=== PATIENT | female | born 1940 | race Caucasian/White ===

== ENCOUNTER 2017-10-08 09:31 | Outpatient (RCR) | payer MEDICARE, OTHER | END 2017-10-08 10:13 | disposition home or self-care (01) | PROVIDERS: ATTEND Orthopaedic Surgery | DX: M25.511 Pain in right shoulder (principal) ==

== ENCOUNTER 2018-04-29 17:41 | Outpatient (RCR) | payer MEDICARE, OTHER | END 2018-05-01 | disposition home or self-care (01) | LOC: CR3 17:41 | PROVIDERS: ATTEND Family Medicine | DX: Z29.8 Encounter for other specified prophylactic measures (principal) ==

== ENCOUNTER → 2018-06-01 | Outpatient (RCR) | payer MEDICARE, OTHER | END | disposition home or self-care (01) | LOC: CR3 05-02 15:00 | PROVIDERS: ATTEND Family Medicine | DX: Z29.8 Encounter for other specified prophylactic measures (principal) ==

== ENCOUNTER 2018-06-03 15:00 | Outpatient (RCR) | payer MEDICARE, OTHER | END 2018-07-03 | disposition home or self-care (01) | LOC: CR3 15:00 | PROVIDERS: ATTEND Family Medicine | DX: Z29.8 Encounter for other specified prophylactic measures (principal) ==

== ENCOUNTER 2018-12-16 15:33 | Outpatient (RCR) | payer MEDICARE, OTHER | END 2018-12-18 | disposition home or self-care (01) | LOC: CR3 15:33 | PROVIDERS: ATTEND Family Medicine | DX: Z29.8 Encounter for other specified prophylactic measures (principal) ==

== ENCOUNTER 2019-01-11 15:23 | Outpatient (RCR) | payer MEDICARE, OTHER | END 2019-01-22 | disposition home or self-care (01) | LOC: CR3 15:23 | PROVIDERS: ATTEND Family Medicine | DX: Z29.8 Encounter for other specified prophylactic measures (principal) ==

== ENCOUNTER → 2019-03-01 | Outpatient (RCR) | payer MEDICARE, OTHER | END | disposition home or self-care (01) | LOC: CR3 01-30 16:21 | PROVIDERS: ATTEND Family Medicine | DX: Z29.8 Encounter for other specified prophylactic measures (principal) ==

== ENCOUNTER → 2019-05-10 | Outpatient (RCR) | payer MEDICARE, OTHER | END | disposition home or self-care (01) | LOC: CR3 04-10 16:13 | PROVIDERS: ATTEND Family Medicine | DX: Z29.8 Encounter for other specified prophylactic measures (principal) ==

== ENCOUNTER 2019-05-17 15:27 | Outpatient (RCR) | payer MEDICARE, OTHER | END 2019-06-16 | disposition home or self-care (01) | LOC: CR3 15:27 | PROVIDERS: ATTEND Family Medicine | DX: Z29.8 Encounter for other specified prophylactic measures (principal) ==

== ENCOUNTER 2019-08-07 16:02 | Outpatient (RCR) | payer MEDICARE, OTHER | END 2019-08-09 | disposition home or self-care (01) | LOC: CR3 16:02 | PROVIDERS: ATTEND Family Medicine | DX: Z29.8 Encounter for other specified prophylactic measures (principal) ==

== ENCOUNTER 2019-09-11 15:07 | Outpatient (RCR) | payer MEDICARE, OTHER | END 2019-09-13 | disposition home or self-care (01) | LOC: CR3 15:07 | PROVIDERS: ATTEND Family Medicine | DX: Z29.8 Encounter for other specified prophylactic measures (principal) ==

== ENCOUNTER 2019-10-13 17:53 | Outpatient (RCR) | payer MEDICARE, OTHER | END 2019-10-18 | disposition home or self-care (01) | LOC: CR3 17:53 | PROVIDERS: ATTEND Family Medicine | DX: Z29.8 Encounter for other specified prophylactic measures (principal) ==

== ENCOUNTER 2019-11-20 15:21 | Outpatient (RCR) | payer MEDICARE, OTHER | END 2019-11-22 | disposition home or self-care (01) | LOC: CR3 15:21 | PROVIDERS: ATTEND Family Medicine | DX: Z29.8 Encounter for other specified prophylactic measures (principal) ==

== ENCOUNTER 2019-12-22 15:17 | Outpatient (RCR) | payer MEDICARE, OTHER | END 2019-12-24 | disposition home or self-care (01) | LOC: CR3 15:17 | PROVIDERS: ATTEND Family Medicine | DX: Z29.8 Encounter for other specified prophylactic measures (principal) ==

== ENCOUNTER 2019-12-29 15:47 | Outpatient (RCR) | payer MEDICARE, OTHER | END 2020-01-24 | disposition home or self-care (01) | LOC: CR3 15:47 | PROVIDERS: ATTEND Family Medicine | DX: Z29.8 Encounter for other specified prophylactic measures (principal) ==

== ENCOUNTER → 2021-01-29 | Outpatient (RCR) | payer MEDICARE, OTHER | END | disposition home or self-care (01) | LOC: CR3 12-30 14:15 | PROVIDERS: ATTEND Family Medicine | DX: Z29.8 Encounter for other specified prophylactic measures (principal) ==

== ENCOUNTER 2021-02-26 14:09 | Outpatient (RCR) | payer MEDICARE, OTHER | END 2021-03-02 | disposition home or self-care (01) | LOC: CR3 14:09 | PROVIDERS: ATTEND Family Medicine | DX: Z29.8 Encounter for other specified prophylactic measures (principal) ==

== ENCOUNTER 2021-03-31 14:17 | Outpatient (RCR) | payer MEDICARE, OTHER | END 2021-04-02 | disposition home or self-care (01) | LOC: CR3 14:17 | PROVIDERS: ATTEND Family Medicine | DX: Z29.8 Encounter for other specified prophylactic measures (principal) ==

== ENCOUNTER 2021-05-02 14:12 | Outpatient (RCR) | payer MEDICARE, OTHER | END 2021-05-04 | disposition home or self-care (01) | LOC: CR3 14:12 | PROVIDERS: ATTEND Family Medicine | DX: Z29.8 Encounter for other specified prophylactic measures (principal) ==

== ENCOUNTER → 2021-06-04 | Outpatient (RCR) | payer MEDICARE, OTHER | END | disposition home or self-care (01) | LOC: CR3 05-05 11:42 | PROVIDERS: ATTEND Family Medicine | DX: Z29.8 Encounter for other specified prophylactic measures (principal) ==

== ENCOUNTER 2021-07-07 14:54 | Outpatient (RCR) | payer MEDICARE, OTHER | END 2021-07-09 | disposition home or self-care (01) | LOC: CR3 14:54 | PROVIDERS: ATTEND Family Medicine | DX: Z29.8 Encounter for other specified prophylactic measures (principal) ==

== ENCOUNTER 2021-08-06 14:25 | Outpatient (RCR) | payer MEDICARE, OTHER | END 2021-08-10 | disposition home or self-care (01) | LOC: CR3 14:25 | PROVIDERS: ATTEND Family Medicine | DX: Z29.8 Encounter for other specified prophylactic measures (principal) ==

== ENCOUNTER 2021-08-18 15:17 | Outpatient (RCR) | payer MEDICARE, OTHER | END 2021-09-10 | disposition home or self-care (01) | LOC: CR3 15:17 | PROVIDERS: ATTEND Family Medicine | DX: Z29.8 Encounter for other specified prophylactic measures (principal) ==

== ENCOUNTER 2021-11-14 14:12 | Outpatient (RCR) | payer MEDICARE, OTHER | END 2021-11-16 | disposition home or self-care (01) | LOC: CR3 14:12 | PROVIDERS: ATTEND Family Medicine | DX: Z29.8 Encounter for other specified prophylactic measures (principal) ==

== ENCOUNTER 2021-12-08 15:18 | Outpatient (RCR) | payer MEDICARE, OTHER | END 2021-12-17 | disposition home or self-care (01) | LOC: CR3 15:18 | PROVIDERS: ATTEND Family Medicine | DX: Z29.8 Encounter for other specified prophylactic measures (principal) ==